=== PATIENT | female | born 1955 | race Caucasian/White ===

== ENCOUNTER → 2016-10-16 | Outpatient (CLI) | payer OTHER, MEDICARE ==
[~2016-10-16] MED LIST: ASPI-496 PO; ASPI-650; BELA250V IV; BELATACEPT; CARV6.252 PO; CHOL2000 PO; CHOL500014 PO; CINA30TA; CINA30TA PO; CIPR500T87; CYAN1TAB29 SL; DIGO125T PO; DIPH1TAB PO; DOCU-30; FENO145T13 PO; GABA300C10 PO; HYDR8TAB PO; LACT1CAP37 PO; LOPE2TAB28 PO; LORA-446 PO; LOSA25TA5; LOSA50TA6 PO; MULT1CAP19; MYCO250C4; MYCO500T3 PO; ONDA4TAB7 PO; PANT40TA3; PANT40TA5 PO; PRED5TAB PO; PRED5TAB19; SIRO2TAB; SODI650T PO; SPIR25TA3 PO; THYR120T; THYR30TA PO; THYR60TA PO; [UNRECOGNIZED DRUG - CODE]
[2016-10-16 10:22] LABS: ASPARTATE AMINO TRANSFERASE 8 U/L (15-37); BLOOD UREA NITROGEN 25 mg/dL (7-18)
== END | disposition home or self-care (01) ==
LOC: STAR 08:35
PROVIDERS: ATTEND Specialist
DX: Z01.810 Encounter for preprocedural cardiovascular examination (principal); Z01.811 Encounter for preprocedural respiratory examination; Z01.812 Encounter for preprocedural laboratory examination; N89.8 Other specified noninflammatory disorders of vagina; D28.0 Benign neoplasm of vulva; J98.4 Other disorders of lung; J84.10 Pulmonary fibrosis, unspecified; R00.1 Bradycardia, unspecified
CPT/HCPCS: 36415; 71020; 80053; 85025; 85610; 85730; 93005

== ENCOUNTER 2016-10-26 06:54 | Day surgery (SDC) | payer OTHER, MEDICARE ==
[~2016-10-26] VITALS: Ht 177.8 cm; Wt 97.0 kg
[2016-10-26] MEDS ORDERED: BUPIVACAINE/PF-EPI 0.25% 1:200K ONE (06:59)
[2016-10-26] MEDS ORDERED: LACTATED RINGERS 1,000 ML IV SCH (07:41)
[2016-10-26 07:42] VITALS: BP 137/74
[2016-10-26] MEDS ORDERED: LIDOCAINE 1%, 2ML SQ PRN (08:00)
[2016-10-26] MEDS ORDERED: hydrALAzine 20 MG/ML, 1ML IV PRN (08:30)
[2016-10-26] MEDS ORDERED: FENTANYL PF 100 MCG/2ML IV PRN (08:30)
[2016-10-26] MEDS ORDERED: LABETALOL 5MG/ML, 20ML IV PRN (08:30)
[2016-10-26] MEDS ORDERED: ACETAMINOPHEN 325 MG TABLET PO PRN (08:30)
[2016-10-26] MEDS ORDERED: MIDAZOLAM 1 MG/ML, 2ML IV PRN (08:30)
[2016-10-26] MEDS ORDERED: ONDANSETRON 2MG/ML, 2ML IVPush PRN (08:30)
[2016-10-26] MEDS ORDERED: HYDROcodone/APAP 7.5-325MG/15ML UDC PO PRN (08:30)
[2016-10-26] MEDS ORDERED: HYDROmorphone 1 MG/ML, 1ML IV PRN (08:30)
[2016-10-26] MEDS ORDERED: PROMETHAZINE 25 MG/ML, 1ML IV PRN (08:30)
[2016-10-26] MEDS ORDERED: EPHEDRINE 50 MG/ML, 1ML IVPush PRN (08:30)
[2016-10-26] MEDS ORDERED: OXYcodone 5 MG/5 ML ORAL.SOL UDC PO PRN (08:30)
[2016-10-26] MEDS ORDERED: MEPERIDINE/PF 25MG/0.5ML IVPush PRN (08:30)
[2016-10-26] MEDS ORDERED: ONDANSETRON 2MG/ML, 2ML ONE (09:00)
[2016-10-26] MEDS ORDERED: PROPOFOL 10 MG/ML, 20ML ONE (09:00)
[2016-10-26] MEDS ORDERED: CEFAZOLIN 1,000 MG ONE (09:00)
[2016-10-26] MEDS ORDERED: DEXAMETHASONE 4 MG/ML, 1ML ONE (09:00)
[2016-10-26] MEDS ORDERED: BUPIVACAINE/PF-EPI 0.25% 1:200K INFIL ONE (09:15)
[2016-10-26] MEDS ORDERED: HYDROcodone/APAP 7.5-325MG/15ML UDC ONE (10:21)
== END 2016-10-26 11:45 | disposition home or self-care (01) ==
LOC: OUT 06:54
PROVIDERS: ATTEND Obstetrics & Gynecology Gynecologic Oncology
DX: C51.9 Malignant neoplasm of vulva, unspecified (principal); N76.1 Subacute and chronic vaginitis; I10 Essential (primary) hypertension; K21.9 Gastro-esophageal reflux disease without esophagitis; E03.9 Hypothyroidism, unspecified; Z87.891 Personal history of nicotine dependence
CPT/HCPCS: 36415; 56620; 57100; 86850; 86900; 88305; 88312; 88342; J0690; J1100; J2250; J2405; J2704; J3010; J7120; G0461

== ENCOUNTER → 2020-12-06 | Outpatient (CLI) | payer OTHER, MEDICARE ==
[~2020-12-06] MED LIST changes: -ASPI-650; +ASPI325T20; -CHOL500014 PO; +CHOL500045 PO; -CINA30TA; -CINA30TA PO; +CINA30TA2; +CINA30TA2 PO; -DIGO125T PO; +DIGO125T85 PO; +DOCU-131; -DOCU-30; -FENO145T13 PO; +FENO145T19 PO; -LACT1CAP37 PO; +LACT1CAP47 PO; +LOSA25TA25; -LOSA25TA5; +LOSA50TA14 PO; -LOSA50TA6 PO; -PANT40TA5 PO; +PANT40TA6 PO; -SPIR25TA3 PO; +SPIR25TA5 PO
[2020-12-06 08:55] LABS: BASOPHILS % (AUTO) 0 % (0-1); EOSINOPHILS % (AUTO) 0 % (1-7); LYMPHOCYTES % (AUTO) 15 % (22-44); MEAN CORPUSCULAR HEMOGLOBIN 28.4 pg (27.0-34.8); MEAN PLATELET VOLUME 7.7 fL (7.4-10.4); MONOCYTES % (AUTO) 7 % (2-9); NEUTROPHILS % (AUTO) 78 % (42-75); PLATELET COUNT 277 x10^3/uL (130-400); RED BLOOD COUNT 4.46 x10^6/uL (3.82-5.3); RED CELL DISTRIBUTION WIDTH 15.4 % (9.6-15.2)
[2020-12-06 09:05] LABS: INTERNATIONAL NORMALIZED RATIO 1.04 (0.93-1.1); PROTHROMBIN TIME 11.1 Seconds (9.6-11.5)
[2020-12-06 09:06] LABS: ALBUMIN 3.4 g/dL (3.4-5.0); ANION GAP 8 mmol/L (5-15); CALCIUM 9.6 mg/dL (8.5-10.1); CHLORIDE 109 mmol/L (98-107)
[2020-12-06 09:10] LABS: ALANINE AMINOTRANSFERASE 18 U/L (12-78); ALKALINE PHOSPHATASE 100 U/L (45-117); BILIRUBIN,TOTAL 0.7 mg/dL (0.2-1.0); CREATININE 1.64 mg/dL (0.55-1.02); TOTAL PROTEIN 6.4 g/dL (6.4-8.2)
== END | disposition home or self-care (01) ==
LOC: STAR 07:51
PROVIDERS: ATTEND Specialist
DX: Z01.818 Encounter for other preprocedural examination (principal); Z20.822 Contact with and (suspected) exposure to COVID-19
CPT/HCPCS: 36415; 80053; 85025; 85610; 85730; 93005; U0003; U0005

== ENCOUNTER 2020-12-10 05:52 | Day surgery (SDC) | payer OTHER, MEDICARE ==
[~2020-12-10] VITALS: Ht 177.8 cm; Wt 103.9 kg
[2020-12-10 06:44] VITALS: BP 132/80
[2020-12-10] MEDS ORDERED: SILVER SULF. CRM 1% , 25GM ONE (06:49)
[2020-12-10] MEDS ORDERED: LIDOCAINE JELLY 2%, 30GM ONE (06:50)
[2020-12-10] MEDS ORDERED: BUPIVACAINE/PF 0.25% ONE (06:50)
[2020-12-10] MEDS ORDERED: EPINEPHRINE 1 MG/ML, 1ML ONE (06:50)
[2020-12-10] MEDS ORDERED: IPRA4AER INH (06:58)
[2020-12-10] MEDS ORDERED: LEVO100T5 PO (06:58)
[2020-12-10] MEDS ORDERED: FURO20TA3 PO (06:58)
[2020-12-10] MEDS ORDERED: VALS40TA2 PO (06:58)
[2020-12-10] MEDS ORDERED: LIDOCAINE-MPF 1%, 2ML ONE (07:03)
[2020-12-10] MEDS ORDERED: CHLORHEXIDINE 15 ML UDC ONE (07:03)
[2020-12-10] MEDS ORDERED: LIDOCAINE-MPF 1%, 2ML INFIL ONE (07:30)
[2020-12-10] MEDS ORDERED: CHLORHEXIDINE 15 ML UDC PO ONE (07:30)
[2020-12-10] MEDS ORDERED: LACTATED RINGERS 1,000 ML IV SCH (07:30)
[2020-12-10] MEDS ORDERED: FENTANYL PF 100 MCG/2ML ONE (07:36)
[2020-12-10] MEDS ORDERED: PROPOFOL 10 MG/ML, 20ML ONE (07:38)
[2020-12-10] MEDS ORDERED: ACETAMINOPHEN 325 MG TABLET PO PRN (08:30)
[2020-12-10] MEDS ORDERED: OXYcodone 5 MG/5 ML ORAL.SOL UDC PO PRN (08:30)
[2020-12-10] MEDS ORDERED: ONDANSETRON 2MG/ML, 2ML IVPush PRN (08:30)
[2020-12-10] MEDS ORDERED: FENTANYL PF 100 MCG/2ML IV PRN (08:30)
[2020-12-10] MEDS ORDERED: hydrALAzine 20 MG/ML, 1ML IV PRN (08:30)
[2020-12-10] MEDS ORDERED: LABETALOL 5MG/ML, 20ML IV PRN (08:30)
[2020-12-10] MEDS ORDERED: HYDROmorphone 1 MG/ML, 1ML INJ IVPush PRN (08:30)
[2020-12-10] MEDS ORDERED: PROMETHAZINE 25 MG/ML, 1ML IVPush PRN (08:30)
== END 2020-12-10 10:15 | disposition home or self-care (01) ==
LOC: OUT 05:52
PROVIDERS: ATTEND Specialist
DX: N89.8 Other specified noninflammatory disorders of vagina (principal); N81.10 Cystocele, unspecified; N81.6 Rectocele; I10 Essential (primary) hypertension; E11.9 Type 2 diabetes mellitus without complications; K21.9 Gastro-esophageal reflux disease without esophagitis; I69.398 Other sequelae of cerebral infarction; M32.9 Systemic lupus erythematosus, unspecified; Z79.82 Long term (current) use of aspirin; Z79.890 Hormone replacement therapy; Z79.899 Other long term (current) drug therapy; Z85.44 Personal history of malignant neoplasm of other female genital organs; Z87.891 Personal history of nicotine dependence; Z88.5 Allergy status to narcotic agent; Z88.8 Allergy status to other drugs, medicaments and biological substances; Z90.710 Acquired absence of both cervix and uterus; Z92.21 Personal history of antineoplastic chemotherapy; Z94.0 Kidney transplant status
CPT/HCPCS: 57105; 88305; J0171; J2704; J3010; J7120